=== PATIENT | female | born 1960 | race Caucasian/White ===

== ENCOUNTER → 2016-08-06 | Outpatient (CLI) | payer OTHER ==
[2016-07-17 12:00] VITALS: BP 133/69
[~2016-08-06] MED LIST: DOCU-27 PO; HYDR-963 PO; HYDR25CA PO; MULT1CAP15 PO; MULT1TAB52 PO; NAPR500T8 PO; OMEP20CA9 PO; OXYC5TAB PO
== END | disposition home or self-care (01) ==
LOC: LAB 09:16
PROVIDERS: ATTEND Orthopaedic Surgery
DX: S82.852D Displaced trimalleolar fracture of left lower leg, subsequent encounter for closed fracture with routine healing (principal)
CPT/HCPCS: 36415; 82306

== ENCOUNTER 2020-08-14 11:37 | Emergency (ER) | payer OTHER ==
[~2020-08-14] VITALS: Ht 167.6 cm; Wt 73.0 kg
[~2020-08-14 11:37] MED LIST changes: +DOCU-109 PO; -DOCU-27 PO; +HYDR-3135 PO; -HYDR-963 PO; +MULT-445 PO; -MULT1TAB52 PO; +OMEP20CA16 PO; -OMEP20CA9 PO; -OXYC5TAB PO; +OXYC5TAB4 PO
[2020-08-14 12:34] LABS: BILIRUBIN,URINE NEGATIVE (NEG); CLARITY,URINE CLEAR; COLOR,URINE YELLOW; NITRITE,URINE NEGATIVE (NEG); PH,URINE 5.5 (<5.0-8.0); PROTEIN,URINE NEGATIVE (NEG-TRACE)
[2020-08-14 12:39] LABS: BASO % 1 % (0-3); EOS # 0.1 x10^3/uL (0.0-0.7); EOS % 1 % (0-3); HEMATOCRIT 38.9 % (36.0-47.0); HEMOGLOBIN 13.7 g/dL (12.0-15.5); LYMPH # 0.9 x10^3/uL (1.0-4.8); LYMPH % 12 % (24-48); MEAN CORPUSCULAR HEMOGLOBIN 32 pg (25-35); MEAN CORPUSCULAR HGB CONC 35 g/dL (31-37); MEAN CORPUSCULAR VOLUME 92 fL (79-100); MONO # 0.5 x10^3/uL (0.0-1.1); MONO % 6 % (0-9); NEUT # 6.5 x10^3/uL (1.8-7.7); NEUT % 81 % (31-73); PLATELET COUNT 146 x10^3/uL (140-400); RED BLOOD COUNT 4.24 x10^6/uL (3.50-5.40); RED CELL DISTRIBUTION WIDTH 12.6 % (11.5-14.5); WHITE BLOOD COUNT 8.1 x10^3/uL (4.0-11.0)
[2020-08-14 12:42] LABS: CALCIUM 9.1 mg/dL (8.5-10.1); CREATININE 0.9 mg/dL (0.6-1.0); GFR 64.3; POTASSIUM 4.5 mmol/L (3.5-5.1)
[2020-08-14 12:48] LABS: ALBUMIN 4.1 g/dL (3.4-5.0); ALBUMIN/GLOBULIN RATIO 1.2 (1.0-1.7); TOTAL BILIRUBIN 0.4 mg/dL (0.2-1.0); TOTAL PROTEIN 7.5 g/dL (6.4-8.2)
[2020-08-14 12:49] LABS: BACTERIA,URINE 0 /HPF (0-FEW)
--- NOTE | 2020-08-14 14:02 | ED.ADGEN ---
Past Medical History Past Medical History: Constipation, Diabetes-Type II Past Surgical History: Other Additional Past Surgical Histo: L ANKLE Smoking Status: Former Smoker Alcohol Use: None Drug Use: None General Adult EDM: Chief Complaint: VAGINAL BLEEDING HPI: HPI: Patient is a 60 year old female who presents emergency department with complaints of vaginal bleeding that began this morning. Patient states she has not had a period in over 10 years. She denies any back pain, fever, nausea, vomiting, diarrhea, body aches, shortness of breath, or fatigue. Patient repo rts that she has been constipated but denies any rectal bleeding. She denies any recent sexual intercourse. Patient denies any dysuria, hematuria, increased urinary frequency. She states that she is only saturated 1 pad. Patient currently complains of lower abdominal cramping that she rates a 3 out of 10 on the pain scale. Patient reports that she took Tylenol prior to arrival and that helped to reduce the pain a little. She reports that the bleeding started before the cramping. Review of Systems: Review of Systems: Complete ROS is negative unless otherwise noted in HPI. Allergies: Allergies: Allergies Coded Allergies Type Severity Reaction Last Updated Verified procaine Allergy Intermediate RED SPOTS 07/17/16 Yes Physical Exam: PE: See Above Constitutional: Well developed, well nourished, no acute distress, non-toxic appearance. HENT: Normocephalic, atraumatic, bilateral external ears normal, nose normal. Eyes: PERRLA, EOMI, conjunctiva normal, no discharge. Neck: Normal range of motion, no stridor. Cardiovascular: Heart rate regular rhythm Lungs & Thorax: Respirations even and unlabored, no retractions, no respiratory distress Pelvic Exam: [facility]iation Therapist present Claudette DUNCAN Abdomen: Nontender, soft External Genitalia: Normal Skin Speculum: Normal vaginal mucosa, bloody cervical discharge Bimanual: No adnexal masses or tenderness, No CMT Skin: Warm, dry, no erythema, no rash. Extremities: No cyanosis, ROM intact, no edema. Neurologic: Alert and oriented X 3, no focal deficits noted. Psychologic: Affect normal, judgement normal, mood normal. Current Patient Data: Labs: Laboratory Tests Test 08/14/20 11:57 08/14/20 12:25 Urine Collection Type U cath Urine Color Yellow Urine Clarity Clear Urine pH 5.5 (<5.0-8.0) Urine Specific [place] 1.020 (1.000-1.030) Urine Protein Negative mg/dL (NEG-TRACE) Urine Glucose (UA) Negative mg/dL (NEG) Urine Ketones (Stick) Negative mg/dL (NEG) Urine Blood Negative (NEG) Urine Nitrite Negative (NEG) Urine Bilirubin Negative (NEG) Urine Urobilinogen Dipstick 1.0 mg/dL (0.2 mg/dL) Urine Leukocyte Esterase Negative (NEG) Urine RBC 3-5 /HPF (0-2) Urine WBC 1-4 /HPF (0-4) Urine Squamous Epithelial Cells Few /LPF Urine Bacteria 0 /HPF (0-FEW) Urine Mucus Marked /LPF White Blood Count 8.1 x10^3/uL (4.0-11.0) Red Blood Count 4.24 x10^6/uL (3.50-5.40) Hemoglobin 13.7 g/dL (12.0-15.5) Hematocrit 38.9 % (36.0-47.0) Mean Corpuscular Volume 92 fL (79-100) Mean Corpuscular Hemoglobin 32 pg (25-35) Mean Corpuscular Hemoglobin Concent 35 g/dL (31-37) Red Cell Distribution Width 12.6 % (11.5-14.5) Platelet Count 146 x10^3/uL (140-400) Neutrophils (%) (Auto) 81 % (31-73) H Lymphocytes (%) (Auto) 12 % (24-48) L Monocytes (%) (Auto) 6 % (0-9) Eosinophils (%) (Auto) 1 % (0-3) Basophils (%) (Auto) 1 % (0-3) Neutrophils # (Auto) 6.5 x10^3/uL (1.8-7.7) Lymphocytes # (Auto) 0.9 x10^3/uL (1.0-4.8) L Monocytes # (Auto) 0.5 x10^3/uL (0.0-1.1) Eosinophils # (Auto) 0.1 x10^3/uL (0.0-0.7) Basophils # (Auto) 0.0 x10^3/uL (0.0-0.2) Sodium Level 140 mmol/L (136-145) Potassium Level 4.5 mmol/L (3.5-5.1) Chloride Level 102 mmol/L (98-107) Carbon Dioxide Level 28 mmol/L (21-32) Anion Gap 10 (6-14) Blood Urea Nitrogen 11 mg/dL (7-20) Creatinine 0.9 mg/dL (0.6-1.0) Estimated GFR (Cockcroft-Gault) 64.3 BUN/Creatinine Ratio 12 (6-20) Glucose Level 174 mg/dL (70-99) H Calcium Level 9.1 mg/dL (8.5-10.1) Total Bilirubin 0.4 mg/dL (0.2-1.0) Aspartate Amino Transferase (AST) 17 U/L (15-37) Alanine Aminotransferase (ALT) 36 U/L (14-59) Alkaline Phosphatase 50 U/L (46-116) Total Protein 7.5 g/dL (6.4-8.2) Albumin 4.1 g/dL (3.4-5.0) Albumin/Globulin Ratio 1.2 (1.0-1.7) Laboratory Tests 08/14/20 12:25 Laboratory Tests 08/14/20 12:25 Vital Signs: Vital Signs Date Time Temp Pulse Resp B/P (MAP) Pulse Ox O2 Delivery O2 Flow Rate FiO2 08/14/20 11:40 97.9 88 16 151/70 (97) 97 Room Air 97.9 EKG: EKG: [] Heart Score: Risk Factors: Risk Factors: DM, Current or recent (<one month) smoker, HTN, HLP, family history of CAD, obesity. Risk Scores: Score 0 - 3: 2.5% MACE over next 6 weeks - Discharge Home Score 4 - 6: 20.3% MACE over next 6 weeks - Admit for Clinical Observation Score 7 - 10: 72.7% MACE over next 6 weeks - Early Invasive Strategies Radiology/Procedures: Radiology/Procedures: PROCEDURE: PELVIS ULTRASOUND EXAMINATION: US PRE HYSTEROSALPINGOGRAM, 08/14/2020 12:41 PM CLINICAL INDICATION: Vaginal bleeding today, LMP 10 years ago TECHNIQUE: Grayscale, color and spectral Doppler ultrasound images of the pelvis via transabdominal approach. COMPARISON: None. FINDINGS: The uterus measures 9.5 x 6.4 x 4.9 cm. The endometrial stripe is difficult to definitively visualized but appears thick and measuring 1.5 cm. No definite myometrial mass. The right ovary measures 2.5 x 1.9 x 1.4 cm. The left ovary measures 2.8 x 2.0 x 1.9 cm. Normal ovarian blood flow bilaterally. No adnexal mass or free fluid. IMPRESSION: There appears to the thickening of endometrial stripe measuring 1.5 cm, however evaluation is limited by transabdominal approach. This could be seen with endometrial hyperplasia or malignancy. If further evaluation is desired, transvaginal approach could be obtained to better visualize, or correlate with tissue sampling. [] Course & Med Decision Making: Course & Med Decision Making Pertinent Labs and Imaging studies reviewed. (See chart for details) 60-year-old female presents emergency department with complaints of vaginal bleeding that began today. Work-up included labs and ultrasound in addition to pelvic exam. CBC was unremarkable; CMP revealed a glucose of 174 otherwise unremarkable; UA was negative for leukoesterase and bacteria Pelvic ultrasound revealed:thickening of endometrial stripe measuring 1.5 cm. This could be seen with endometrial hyperplasia or malignancy. If further evaluation is desired, transvaginal approach could be obtained to better visualize, or correlate with tissue sampling. I spoke with Dr. Melgar, I will provide the patient with his information and recommend follow-up in his office within the next 1 to 2 weeks. Return to the ER if symptoms worsen or he began to saturate more than 1 pad per hour. Avni Disclaimer: Dragon Disclaimer: This electronic medical record was generated, in whole or in part, using a voice recognition dictation system. Departure Departure Impression: Primary Impression: DUB (dysfunctional uterine bleeding) Disposition: 01 [place] [facility] SELF CARE/HOMELESS Referrals: RAQUEL MELGAR Jr, MD Patient Instructions: Uterine Bleeding, Dysfunctional, [id number] Additional Instructions: Follow-up with 's office within the next 1 to 2 weeks, call this afternoon to schedule an appointment. Return to the ER if you begin saturating more than 1 pad an hour or your symptoms worsen. NICKIE DUARTE APRN Aug 14, 2020 14:02
--- NOTE | 2020-08-14 14:06 | RAD ---
EXAMINATION: US PRE HYSTEROSALPINGOGRAM, 08/14/2020 12:41 PM CLINICAL INDICATION: Vaginal bleeding today, LMP 10 years ago TECHNIQUE: Grayscale, color and spectral Doppler ultrasound images of the pelvis via transabdominal a pproach. COMPARISON: None. FINDINGS: The uterus measures 9.5 x 6.4 x 4.9 cm. The endometrial stripe is difficult to definitively visualize d but appears thick and measuring 1.5 cm. No definite myometrial mass. The right ovary measures 2.5 x 1.9 x 1.4 cm. The left ovary measures 2.8 x 2.0 x 1.9 cm. Normal ovari an blood flow bilaterally. No adnexal mass or free fluid. IMPRESSION: There appears to the thickening of endometrial stripe measuring 1.5 cm, however evaluatio n is limited by transabdominal approach. This could be seen with endometrial hyperplasia or malignanc y. If further evaluation is desired, transvaginal approach could be obtained to better visualize, or correlate with tissue sampling. Electronically signed by: Denice Taveras MD (08/14/2020 2:03 PM) [id number]
[2020-08-14 14:43] VITALS: BP 131/69
== END 2020-08-14 14:50 | disposition home or self-care (01) ==
LOC: ER 11:37
DX: N93.8 Other specified abnormal uterine and vaginal bleeding (principal); E11.9 Type 2 diabetes mellitus without complications; Z87.891 Personal history of nicotine dependence; Z88.4 Allergy status to anesthetic agent
CPT/HCPCS: 36415; 76856; 80053; 81001; 85025; 99285